=== PATIENT | female | born 1985 | race Caucasian/White ===

== ENCOUNTER 2017-04-27 10:12 | Emergency (ER) | payer OTHER ==
[~2017-04-27] VITALS: Ht 152.4 cm; Wt 81.8 kg
[~2017-04-27 10:12] MED LIST: PREN1TAB80 PO
[2017-04-27 10:51] VITALS: BP 145/107
== END 2017-04-27 11:13 | disposition home or self-care (01) ==
LOC: EMS 10:13
DX: R10.2 Pelvic and perineal pain (principal); F17.210 Nicotine dependence, cigarettes, uncomplicated; Z30.432 Encounter for removal of intrauterine contraceptive device
CPT/HCPCS: 99281

== ENCOUNTER 2017-09-04 07:38 | Emergency (ER) | payer OTHER ==
[~2017-09-04] VITALS: Ht 162.6 cm; Wt 68.2 kg
[2017-09-04] MEDS ORDERED: CEPHALEXIN MONOHYDRATE 500 MG CAPSULE PO ONE (09:15)
[2017-09-04] MEDS ORDERED: KETOROLAC TROMETHAMINE 30 MG/ML VIAL IM ONE (09:15)
[2017-09-04] MEDS ORDERED: LIDOCAINE HCL/PF 1% 5 ML VIAL INJ ONE (09:15)
[2017-09-04 09:30] VITALS: BP 102/57
== END 2017-09-04 10:18 | disposition home or self-care (01) ==
LOC: EMS 07:39
DX: L03.032 Cellulitis of left toe (principal)
CPT/HCPCS: 10060; 96372; 99283; J1885; J3490

== ENCOUNTER 2018-03-30 09:18 | Emergency (ER) | payer OTHER ==
[~2018-03-30] VITALS: Ht 152.4 cm; Wt 86.4 kg
[2018-03-30] MEDS ORDERED: KETOROLAC TROMETHAMINE 60 MG/2 ML VIAL IM ONE (10:00)
[2018-03-30 11:14] VITALS: BP 154/98
== END 2018-03-30 11:44 | disposition home or self-care (01) ==
LOC: EMS 09:21
DX: S90.212A Contusion of left great toe with damage to nail, initial encounter (principal); R03.0 Elevated blood-pressure reading, without diagnosis of hypertension; W22.09XA Striking against other stationary object, initial encounter; Y93.01 Activity, walking, marching and hiking; Y92.098 Other place in other non-institutional residence as the place of occurrence of the external cause; Y99.8 Other external cause status
CPT/HCPCS: 73660; 96372; 99284; J1885